=== PATIENT | male | born 1980 | race Caucasian/White ===

== ENCOUNTER 2020-01-25 10:50 | Emergency (ER) | payer BC ==
[~2020-01-25] VITALS: Ht 177.8 cm; Wt 104.3 kg
--- NOTE | 2020-01-25 10:55 | NUR ---
ED Nurse Note: PT. AAOX4. AMBULATORY. PT. BROUGTH IN BY [id number] FROM HOME. PER EMS, PT IS HERE BECAUSE HE WAS PULLING HIS INGROWN HAIR ON THE L-SIDE OF HIS CHIN AND STARTED BLEEDING. PT.CAME IN WITH DRESSING ON THE AFFECTED SITE.
--- NOTE | 2020-01-25 11:16 | NUR ---
ED Nurse Note: PATIENT WAS BROUGTH IN BY AMBULANCE [id number] FROM HOME. PER EMS, PT IS HERE BECAUSE HE WAS PULLING HIS INGROWN HAIR ON THE L-SIDE OF HIS CHIN AND STARTED BLEEDING. PER PATIENT HE IS BLEEDING SINCE 1999. PATIENT AAOX4, VSS AT THIS TIME
--- NOTE | 2020-01-25 11:20 | NUR ---
ED Nurse Note: DR. Burroughs AT THE BEDSIDE DOING SUTURES. NO S/ OF ACUTE DISTRESS NOTED AT THIS TIME
[2020-01-25 11:43] VITALS: BP 168/98
[2020-01-25] MEDS ORDERED: AUGMENTIN 875-1 EAC1 ORAL (12:35)
[2020-01-25] MEDS ORDERED: BACITRACIN15 GM TOPIC (12:35)
--- NOTE | 2020-01-25 12:43 | Consultation ---
History of Present Illness General Date patient seen: Jan 25, 2020 Reason for Hospitalization: Wound Recheck/Suture Removal Present Illness HPI This is a very pleasant 39-year-old otherwise healthy male who presented to [facility] complaining of bleeding from his left cheek. Patient with history of neurotic dramatic excoriation states has been picking on something on his left cheek for some time now and last night began to bleed profusely and has nonstop bleeding since. Came in emergency room identified arterial bleeding superficial. [id number] sutures placed hemostasis obtained given location size surgery called to eval and assist with care. Patient seen, patient by, chart reviewed. Patient states he is never needed to go to the emergency room for similar events has had oozing before but never such active bleeding. No nausea vomiting fever chills. Otherwise feels well. Feels better now. Allergies: Coded Allergies: No Known Allergies (Unverified , 08/07/13) COVID-19 Screening Contact w/high risk pt: No Experienced COVID-19 symptoms?: No Medication History Scheduled Amoxicillin/Potassium Clav 875-125* (Augmentin 875-125 Tablet*), 1 TAB ORAL TWICE A DAY Bacitracin (Bacitracin), 1 APPLIC TOPIC THREE TIMES A DAY Patient History History Provided By: Patient Healthcare decision maker Resuscitation status Advanced Directive on File Past Medical/Surgical History Past Medical/Surgical History: (1) Bleeding from wound Review of Systems Review of Symptoms General ROS: no weight loss or fever Psychological ROS: no depression or mood changes, no memory loss Ophthalmic ROS: no visual changes or eye irritation ENT ROS: no nasal congestion, hearing loss, dizziness Allergy and Immunology ROS: no allergic symptoms or urticaria Hematological and Lymphatic ROS: no swollen glands, unusual bleeding or bruising Endocrine ROS: no polyuria, polydipsia, weight changes, temperature intolerance Respiratory ROS: no cough, shortness of breath, or wheezing Cardiovascular ROS: no chest pain or dyspnea on exertion Gastrointestinal ROS: denies abdominal pain, bright red blood in stool. Musculoskeletal ROS: no myalgias or arthralgias Neurological ROS: no TIA or stroke symptoms Dermatological ROS: no new or changing skin lesions, rashes or pruritis Physical Exam Physical Exam General appearance: alert, cooperative, no distress, appears stated age Head: Normocephalic, without obvious abnormality, left check induration with open wound s/p closure hemostatsis Eyes: conjunctivae/corneas clear. PERRL, EOM's intact. Fundi benign Throat: Lips, mucosa, and tongue normal. Teeth and gums normal Neck: supple, symmetrical, trachea midline, no adenopathy, thyroid: not enlarged, symmetric, no tenderness/mass/nodules, no carotid bruit and no JVD Lungs: clear to auscultation bilaterally Heart: regular rate and rhythm, S1, S2 normal, no murmur, click, rub or gallop Abdomen: soft, non-tender. Bowel sounds normal. No masses, no organomegaly Extremities: extremities normal, atraumatic, no cyanosis or edema Pulses: 2+ and symmetric Skin: Skin color, texture, turgor normal. No rashes or lesions Neurologic: Grossly normal Last 24 Hour Vital Signs Date Time Temp Pulse Resp B/P (MAP) Pulse Ox O2 Delivery O2 Flow Rate FiO2 01/25/20 11:43 98.6 22 168/98 98 Room Air 01/25/20 10:46 98.6 120 22 168/98 (121) 98 Room Air Height (Feet): 5 Height (Inches): 10.00 Weight (Pounds): 230 Assessment/Plan Problem List: (1) Bleeding from wound Assessment & Plan: 39-year-old male with open wound active bleeding from left cheek noted compulsive Derm excoriation ongoing for some time now because arterial bleeding superficial status post hemostasis sutures now hemostatic induration identified no purulent drainage no active infection tender sutures noted wound noted wound cleansed dressings applied care instructions given to patient. Patient follow-up in my office on Saturday at 11 AM for wound check possible suture removal. Okay for diet local wound care instructions given to patient upon discharge. Augmentin p.o. given location wound DC planning. Thank you for letting participate patient's care ICD Codes: T14.8XXA - Other injury of unspecified body region, initial encounter SNOMED: [id number] NedBradford Jan 25, 2020 12:43
[2020-01-25 12:45] VITALS: BP 168/98
--- NOTE | 2020-01-25 12:45 | NUR ---
ER DISCHARGE NOTE: Patient is cleared to be discharged per ERMD, pt is aox4, on room air, with stable vital signs. pt was given dc and prescription instructions, pt was able to verbalize understanding, pt id band removed without complications. pt is able to ambulate with steady gait. pt took all belongings.
--- NOTE | 2020-01-26 07:34 | Emergency Room Report ---
History of Present Illness General Chief Complaint: Wound Recheck/Suture Removal Source: Patient Present Illness HPI 39-year-old male presents with bleeding to his cheek. Came in by EMS from home. History of anxiety. States that he picked out an ingrown hair on his hair on his cheek and is started bleeding last night. Has not been able to control the bleeding so he came to the ED for evaluation. Denies pain. States that he does this from time to time but never such severe bleeding. Denies taking blood thinners. No other aggravating relieving factors. 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 Patient History Past Medical History: GERD Past Surgical History: none Pertinent Family History: none Social History: Denies: smoking, alcohol use, drug use Immunizations: UTD Reviewed Nursing Documentation: PMH: Agreed; PSxH: Agreed Nursing Documentation-PMH Hx Gastrointestinal Problems: Yes - gerd Review of Systems All Other Systems: negative except mentioned in HPI Physical Exam Vital Signs Date Time Temp Pulse Resp B/P (MAP) Pulse Ox O2 Delivery O2 Flow Rate FiO2 01/25/20 10:46 98.6 120 22 168/98 (121) 98 Room Air Sp02 EP Interpretation: reviewed, normal General Appearance: no apparent distress, alert, GCS 15, non-toxic Head: normocephalic, atraumatic Eyes: bilateral eye normal inspection, bilateral eye PERRL ENT: hearing grossly normal, normal pharynx, no angioedema, normal voice Neck: full range of motion, supple/symm/no masses Respiratory: chest non-tender, lungs clear, normal breath sounds, speaking full sentences Cardiovascular #1: regular rate, rhythm, no edema Cardiovascular #2: 2+ carotid (R), 2+ carotid (L), 2+ radial (R), 2+ radial (L), 2+ dorsalis pedis (R), 2+ dorsalis pedis (L) Gastrointestinal: normal bowel sounds, non tender, soft, non-distended, no guarding, no rebound Rectal: deferred Genitourinary: normal inspection, no CVA tenderness Musculoskeletal: back normal, normal range of motion, gait/station normal, non- tender Neurologic: alert, motor strength/tone normal, oriented x3, sensory intact, responsive, speech normal Psychiatric: judgement/insight normal, memory normal, mood/affect normal, no suicidal/homicidal ideation Reflexes: 3+ bicep (R), 3+ bicep (L), 3+ tricep (R), 3+ tricep (L), 3+ knee (R), 3+ knee (L) Skin: other - 1cm circumferental wound to L cheek with arterial bleeding Lymphatic: no adenopathy Procedures Laceration/Wound Repair Laceration/Wound Repair : Consent: Emergent Wound Location: face - L cheek Wound's Depth, Shape: other - circular, arterial bleeding noted Wound Explored: clean Betadine Prep?: Yes Anesthesia: 1% Lidocaine Wound Debrided: minimal Wound Repaired With: sutures Suture Size/Type: 4:0, proline - figure of 8 for hemostasis Layer Closure?: No Sterile Dressing Applied?: Yes Splint Applied?: No Sling Applied?: No Patient Tolerated: Well Complications: None Medical Decision Making Diagnostic Impression: Primary Impression: Bleeding from wound ER Course Hospital Course 39-year-old male presents with bleeding to the left cheek after picking at it ingrown hair Clinical course Patient placed on stretcher. After initial history physical exam reveals male in no acute distress. There is profuse bleeding from a wound on the cheek. Unable to completely visualize as the bleeding is arterial. Pressure did not achieve hemostasis. Lidocaine used. [id number] suture placed which achieved adequate hemostasis. Patient observed with no additional bleeding noted. Wound cleaned. Dressing applied Dr. Marino evaluated patient at bedside. Agrees with management. He will follow-up with patient and his office in 2 days for suture removal and reassessment of wound. we will discharge with antibiotics. Diagnosis - bleeding from wound Stable and discharged to home with prescription for Augmentin. wound Care instructions given. Followup with surgrey in 2 days for suture removal. Return to ED if any signs of infection develop Last Vital Signs Date Time Temp Pulse Resp B/P (MAP) Pulse Ox O2 Delivery O2 Flow Rate FiO2 01/25/20 12:45 98.6 22 168/98 98 Room Air 01/25/20 10:46 120 Status: improved Disposition: HOME, SELF-CARE Condition: Stable Scripts Bacitracin (Bacitracin) 28.4 Gm Oint...g. 1 APPLIC TOPIC THREE TIMES A DAY, #28.4 GM Prov: Dereck Guevara MD 01/25/20 Amoxicillin/Potassium Clav 875-125* (AUGMENTIN 875-125 TABLET*) 1 Each Tablet 1 TAB ORAL TWICE A DAY, #14 TAB Prov: Dereck Guevara MD 01/25/20 Referrals: Bradford Marino NOT CHOSEN IPA/,REFERRING (PCP) Patient Instructions: Wound Check Additional Instructions: please followup with Dr Marino on 01/26. Dereck Guevara MD Jan 26, 2020 07:34
== END 2020-01-25 12:45 | disposition home or self-care (01) ==
LOC: EDBD 10:50 → EMR 11:14
DX: S01.402A Unspecified open wound of left cheek and temporomandibular area, initial encounter (principal); X58.XXXA Exposure to other specified factors, initial encounter; K21.9 Gastro-esophageal reflux disease without esophagitis
CPT/HCPCS: 99283